=== PATIENT | female | born 1985 | race American Indian/Alaskan Native ===

== ENCOUNTER 2016-08-14 06:37 | Emergency (ER) | payer SELFPAY ==
[2016-08-14 07:22] LABS: Basophils % (Auto) 0.2 % (0.0-1.8); Eosinophils % (Auto) 1.2 % (0.0-4.3); Hematocrit 35.7 % (30.3-42.9); Hemoglobin 11.4 gm/dl (10.1-14.3); Mean Corpuscular HGB Conc 32 % (30-34); Mean Corpuscular Volume 80 fl (79-97); Platelet Count 445 K/mm3 (140-440); Red Blood Count 4.47 M/mm3 (3.65-5.03); Red Cell Distribution Width 15.5 % (13.2-15.2); White Blood Count 7.4 K/mm3 (4.5-11.0)
[2016-08-14 07:25] LABS: Mean Corpuscular Hemoglobin 26 pg (28-32)
[2016-08-14 07:35] LABS: Alanine Aminotransferase 20 units/L (7-56); Albumin 3.5 g/dL (3.9-5); Albumin/Globulin Ratio 1.1 %; Alkaline Phosphatase 81 units/L (35-129); Anion Gap 18 mmol/L; BUN/Creatinine Ratio 14.28; Bilirubin,Total 0.3 mg/dL (0.1-1.2); Blood Urea Nitrogen 10 mg/dL (7-17); Calcium 8.3 mg/dL (8.4-10.2); Carbon Dioxide 24 mmol/L (22-30); Chloride 100.9 mmol/L (98-107); Glucose 113 mg/dL (65-100); Lipase 13 units/L (13-60); Potassium 4.1 mmol/L (3.6-5.0); Sodium 139 mmol/L (137-145); Total Protein 6.7 g/dL (6.3-8.2)
[2016-08-14 13:22] LABS: Ketones,Urine Negative (Negative); Urobilinogen,Urine < 2.0 mg/dL (<2.0)
[2016-08-14 13:23] LABS: Leukocyte Esterase,Urine Negative (Negative); Nitrite,Urine Negative (Negative); RBC,Urine > 182.0 /HPF (0.0-6.0)
--- NOTE | 2016-08-14 13:31 | Emergency Department Report ---
HPI - General Chief Complaint: Abdominal Pain Time Seen by Provider: 08/14/16 12:52 - HPI HPI: This is a 31-year-old Afro-Algerian female presents to the emergency department from home with complaint of right lower and middle abdominal pain since this morning upon waking. The pain is sharp and has been constant. It is associated with some nausea and vomiting but she denies any diarrhea, dysuria, vaginal discharge. Patient does have some mild vaginal bleeding as she started her menstrual cycle today. She took some ibuprofen for discomfort and some Zofran for nausea. The Zofran helped but the ibuprofen did not. No recent travel or sick contacts at home. Patient does have a history of gallstones. She does not currently have a primary care doctor. ED Past Medical Hx - Past Medical History Previous Medical History?: Yes Additional medical history: Hx of Gallstones - Surgical History Past Surgical History?: No - Social History Smoking Status: Never Smoker Substance Use Type: None - Medications Home Medications: Home Medications Medication Instructions Recorded Confirmed Last Taken Type HYDROcodone/APAP 5-325 [[place] 1 each PO Q6HR PRN #12 tablet 08/14/16 Unknown Rx 5/325] ED Review of Systems ROS: Stated complaint: ABDOMINAL PAIN Other details as noted in HPI Comment: All other systems reviewed and negative Constitutional: denies: chills, fever Eyes: denies: eye pain, eye discharge, vision change ENT: denies: ear pain, throat pain Respiratory: denies: cough, shortness of breath, wheezing Cardiovascular: denies: chest pain, palpitations Gastrointestinal: abdominal pain, nausea, vomiting Genitourinary: denies: urgency, dysuria, discharge Musculoskeletal: denies: back pain, joint swelling, arthralgia Skin: denies: rash, lesions Neurological: denies: headache, weakness, paresthesias Physical Exam - Physical Exam Vital Signs: Vital Signs 08/14/16 08/14/16 06:41 12:57 Temperature 99.7 F H 98.2 F Pulse Rate 74 Respiratory 84 H Rate Blood Pressure 112/70 [Right] O2 Sat by Pulse 100 Oximetry Physical Exam: GENERAL: The patient is well-developed well-nourished. HEENT: Normocephalic. Atraumatic. Extraocular motions are intact. Patient has moist mucous membranes. Pupils equal reactive to light bilaterally. NECK: Supple. Trachea is midline. CHEST/LUNGS: Clear to auscultation. There is no respiratory distress noted. HEART/CARDIOVASCULAR: Regular. There is no tachycardia. There is no gallop rub or murmur. ABDOMEN: Abdomen is soft. Patient has some tenderness to palpation to the right lower quadrant of the abdomen. No guarding or rebound tenderness. No peritoneal signs. Patient has normal bowel sounds. There is no abdominal distention. SKIN: There is no rash. There is no edema. There is no diaphoresis. NEURO: The patient is awake, alert, and oriented. The patient is cooperative. The patient has no focal neurologic deficits. The patient has normal speech. MUSCULOSKELETAL: There is no tenderness or deformity. There is no limitation range of motion. There is no evidence of acute injury. ED Course Vital Signs 08/14/16 08/14/16 06:41 12:57 Temperature 99.7 F H 98.2 F Pulse Rate 74 Respiratory 84 H Rate Blood Pressure 112/70 [Right] O2 Sat by Pulse 100 Oximetry ED Medical Decision Making - Lab Data Result diagrams: 08/14/16 07:00 08/14/16 07:00 - Radiology Data Radiology results: report reviewed CT of the abdomen and pelvis with IV contrast shows a large right adnexal cystic mass, presumed ovarian with extrinsic compression of the right lateral aspect of the urinary bladder. Pelvic Doppler ultrasound and transvaginal ultrasound shows a 7.1 cm right ovarian cyst. - Medical Decision Making 31-year-old female presents the emergency department with complaint of right lower quadrant pain and concern for appendicitis. Patient also has history of gallstones but her abdominal pain is much lower than usual with her biliary colic. Patient's labs have been unremarkable. Vital signs stable throughout her ED course. Due to her habitus and concern with right lower quadrant abdominal pain and possible appendicitis, a CT of the abdomen and pelvis was done that came back showing a multicystic mass to the right adnexa concerning to be on the ovary. The recommendation was for ultrasound for better delineation. This was done and did not show any torsion but does show a 7.1 cm right ovarian cyst. Patient has [employer] follow-up. [facility] but will also be given some private [employer] physicians for referral. She'll be given some pain medication. She will return to the ER with any worsening of her symptoms or any acute distress. - Differential Diagnosis malignancy, ovarian cyst, fibroids, appendicitis, Critical Care Time: No Critical care attestation.: If time is entered above; I have spent that time in minutes in the direct care of this critically ill patient, excluding procedure time. ED Disposition Clinical Impression: Abdominal pain Qualifiers: Abdominal location: right lower quadrant Qualified Code(s): R10.31 - Right lower quadrant pain Ovarian cyst Qualifiers: Laterality: right Qualified Code(s): N83.201 - Unspecified ovarian cyst, right side Disposition: DISCHARGED TO HOME OR SELFCARE Is pt being admited?: No Does the pt Need Aspirin: No Condition: Stable Instructions: Abdominal Pain (ED), Ovarian Cyst (ED) Additional Instructions: Please follow-up with your [employer]ODU[employer] INSPECTOR TRIMMER in the near future. Return to the emergency department with any worsening of your symptoms or any acute distress. You've been prescribed a medication that is sedating. Therefore this medication cannot be mixed with alcohol, or taken prior to driving, working, or being responsible for children. Prescriptions: HYDROcodone/APAP 5-325 [[place] 5/325] 1 each PO Q6HR PRN #12 tablet PRN Reason: Pain Referrals: PRIMARY CARE, [Primary Care Provider] - 3-5 Days MACK MACKAY MD [Staff Physician] - 3-5 Days GINO ARCINIEGA MD [Staff Physician] - 3-5 Days JOSE A AYERS MD [Staff Physician] - 3-5 Days Forms: Work/School Release Form(ED) Time of Disposition: 18:02
--- NOTE | 2016-08-14 14:46 | XRay Report ---
ABDOMEN TWO VIEWS: History: Abdominal pain. There is no evidence of free air beneath the diaphragms. The gas pattern within the abdomen is unremarkable. There is no evidence of bowel dilatation, significant air-fluid levels, or masses. The psoas margins are adequately visualized. IMPRESSION: Unremarkable abdomen.
[2016-08-14] MEDS ORDERED: NACL 0.9% 1000 ML 1,000 ML IV ONE (14:51)
[2016-08-14] MEDS ORDERED: MORPHINE IV ONE (14:52)
--- NOTE | 2016-08-14 16:24 | Cat Scan Report ---
CT of the abdomen and pelvis with IV contrast. Findings: The liver, spleen, pancreas, and gallbladder appear normal. The kidneys are normal in size and configuration with no evidence of mass or hydronephrosis. There is a large cystic mass in the right pelvis exerting marked extrinsic compression of the urinary bladder on the right. The mass measures approximately 6.7 x 8.2 x 6.5 CM. The capsule of the mass is thin and there is no contrast enhancement; no calcifications are seen within the mass. The uterus is normal in size and configuration, and no left adnexal abnormalities are seen. There no mesenteric inflammatory changes. There is no radiographic evidence of appendicitis. Impression: Large right adnexal cystic mass, presumed ovarian with extrinsic compression of the right lateral aspect of the urinary bladder. Correlation with pelvic ultrasound may be useful in further evaluation.
[2016-08-14] MEDS ORDERED: MACROBID PO ONE (16:27)
--- NOTE | 2016-08-14 17:32 | Ultrasound Report ---
FINAL REPORT PROCEDURE: US PELVIS DUPLEX DOPPLER COMP TECHNIQUE: Real-time transabdominal sonography in multiple planes of the pelvis was performed. The pelvic structures were not optimally visualized. Transvaginal sonography was then performed to better evaluate the structures and/or abnormalities described below with image documentation. Grayscale, color flow Doppler imaging and velocity spectral waveform analysis of the ovaries was employed (duplex imaging). CPT 86711, 22593, and 18226 HISTORY: pelvic pain and mass COMPARISON: No prior studies are available for comparison. FINDINGS: Uterus measures 11.7 cm in length. Endometrial thickness is 1.3 cm. No uterine masses are seen. Left ovary is obscured due to bowel gas. Right ovary is enlarged measuring 6.7 x 6.8 x 7.9 cm. It contains 7.1 cm cyst. Normal Doppler flow is seen in the right ovary. Minimal physiologic free pelvic fluid is seen. IMPRESSION: 7.1 cm right ovarian cyst is seen.
--- NOTE | 2016-08-14 17:32 | Ultrasound Report ---
FINAL REPORT PROCEDURE: US TRANSVAGINAL TECHNIQUE: Real-time transabdominal sonography in multiple planes of the pelvis was performed. The pelvic structures were not optimally visualized. Transvaginal sonography was then performed to better evaluate the structures and/or abnormalities described below with image documentation. Grayscale, color flow Doppler imaging and velocity spectral waveform analysis of the ovaries was employed (duplex imaging). CPT 18109, 35370, and 71996 HISTORY: pelvic pain and mass COMPARISON: No prior studies are available for comparison. FINDINGS: Uterus measures 11.7 cm in length. Endometrial thickness is 1.3 cm. No uterine masses are seen. Left ovary is obscured due to bowel gas. Right ovary is enlarged measuring 6.7 x 6.8 x 7.9 cm. It contains 7.1 cm cyst. Normal Doppler flow is seen in the right ovary. Minimal physiologic free pelvic fluid is seen. IMPRESSION: 7.1 cm right ovarian cyst is seen.
[2016-08-14 18:14] VITALS: BP 124/80
== END 2016-08-14 18:15 | disposition home or self-care (01) ==
LOC: ED 06:37
DX: N83.201 Unspecified ovarian cyst, right side (principal); R10.31 Right lower quadrant pain
CPT/HCPCS: 36415; 74020; 74177; 76830; 80053; 81001; 81025; 83690; 85025; 93975; 96360; 99284; J7030; Q9967; J2270

== ENCOUNTER 2019-10-13 06:22 | Day surgery (SDC) | payer MEDICAID ==
--- NOTE | 2019-10-12 11:17 | Short Stay Summary ---
Short Stay Documentation Date of service: 10/13/19 - History H&P: obtained from office - Allergies and Medications Current Medications: Allergies No Known Allergies Allergy (Verified 10/09/19 10:00) Home Medications Medication Instructions Recorded Confirmed Last Taken Type No Known Home Medications [No 10/01/19 10/09/19 Unknown History Reported Home Medications] Active Medications Lactated Ringer's (Lactated Ringers) 1,000 mls @ 100 mls/hr IV DIRECT ANEL Midazolam HCl (Versed) 2 mg IV PREOP NR Stop: 10/13/19 23:00 - Physical exam General appearance: no acute distress Integumentary: no rash HEENT: Atraumatic Lungs: Normal air movement Neurological: Normal speech - Brief post op/procedure progress note Date of procedure: 10/13/19 (dictation:[id number]) Pre-op diagnosis: abdominal wall mass Post-op diagnosis: same Procedure: excision of abdominal wall mass repair of anterior fascia IVF 750cc EBl ~50cc Anesthesia: GETA Findings: 5x4.5x5.7cm firm mass that was densely adhered to anterior fascia Surgeon: MARYAM BOUDREAUX Estimated blood loss: 50-100ml Pathology: list (abdominal wall mass) Specimen disposition: to lab Condition: stable - Hospital course Hospital course: uneventful - Disposition Condition at discharge: Stable Disposition: DC-01 TO HOME OR SELFCARE Short Stay Discharge Plan Activity: advance as tolerated Diet: regular Wound: open to air, keep clean and dry Special Instructions: no heavy lifting Additional Instructions: Post Operative Instructions Activity: no heavy lifting for next 1 week. May shower tomorrow. Pat dry the wound or wounds. Keep incision sites clean and dry After surgery, start with a light diet. Consider starting with liquids. If you do well, you can advance to a regular diet as you feel comfortable. Apply an ice pack to the wound or wounds for 10-20 minutes at a time. Do this at least 4-5 times a day. You can do it more if he would like. Pain Medication Schedule for the first 2 days after surgery: Gabapentin 600mg twice a day Celebrex (celecoxib) 200mg twice a day Tylenol 500mg four times a day (every 6 hours) After the first 2 days, then take alternating doses of ibuprofen and Tylenol as needed for pain. Take 600 mg of ibuprofen every 6 hours as needed. Take 500 mg of Tylenol every 6 hours as needed. You should alternate these 2 medicines. Make sure you take the ibuprofen with food. It is very important that you use the prescription narcotic pain medicine (hydrocodone) only for very severe pain. Do not take the narcotic medicine before you try using all the medications listed above. We will call you in a couple of days to see how youre doing. If you have any questions or concerns, always feel free to call the clinic ([phone]) at any time. Follow up with: PRIMARY MD RON [Referring] - 7 Days MARYAM BOUDREAUX MD [Staff Physician] - 14 Days Forms: Outpatient Surgery DC Inst. Prescriptions: Celecoxib [celeBREX] 200 mg PO BID #4 capsule Gabapentin 600 mg PO BID #8 cap HYDROcodone/APAP 5-325 [[place] 5-325 mg TAB] 1 each PO Q6HR PRN #20 tablet PRN Reason: Pain , Severe (7-10)
[~2019-10-13 06:22] MED LIST: ACETAMINOPHEN 500 MG TAB PO ONE; CELECOXIB 200 MG CAP PO NR; GABAPENTIN 400 MG CAP PO SCH; LACTATED RINGERS 1,000 ML IV SCH; MIDAZOLAM 2 MG/2 ML INJ IV NR; ceFAZolin/Water 2 GM/20 ML 2 GM/20 ML SYRINGE IV NR
[2019-10-13] MEDS ORDERED: LIDOCAINE (1%) 10 MG/1 ML VIAL 20 ML MDV ONE (06:56)
[2019-10-13] MEDS ORDERED: BUPIVACAINE-EPINEPHRINE/PF 0.5%-1:200,000 (10 ML) VIAL INFILTRATI ONE (06:57)
[2019-10-13] MEDS ORDERED: fentaNYL 100 MCG/2 ML INJ IV PRN (07:08)
--- NOTE | 2019-10-13 07:08 | Anesthesia Consultation ---
Anesthesia Consult and Med Hx Date of service: 10/13/19 - Airway Anesthetic Teeth Evaluation: Good ROM Head & Neck: Adequate Mental/Hyoid Distance: Adequate Mallampati Class: Class III Intubation Access Assessment: Possibly Difficult - Pulmonary Exam CTA: Yes - Cardiac Exam Cardiac Exam: RRR - Pre-Operative Health Status ASA Pre-Surgery Classification: ASA1 Proposed Anesthetic Plan: General - Pre-Anesthesia Comment Pre-Anesthesia Comments: Patient requests GA. - Pulmonary Hx Smoking: No Hx Respiratory Symptoms: No - Cardiovascular System Hx Hypertension: No Hx Heart Attack/AMI: No Hx Percutaneous Transluminal Coronary Angioplasty (PTCA): No - Central Nervous System CVA: No - Gastrointestinal Hx Gastroesophageal Reflux Disease: No - Endocrine Hx Renal Disease: No Hx Liver Disease: No Hx Insulin Dependent Diabetes: No Hx Non-Insulin Dependent Diabetes: No Hx Thyroid Disease: No - Other Systems Hx Obesity: Yes (BMI 36) - Additional Comments Anesthesia Medical History Comments: No hx anesthetic complications.
--- NOTE | 2019-10-13 07:08 | Anesthesia Day of Surgery ---
Anesthesia Day of Surgery - Day of Surgery Patient Examined: Yes Patient H&P Reviewed: Yes Patient is NPO: Yes
[2019-10-13] MEDS ORDERED: fentaNYL 100 MCG/2 ML INJ ONE (07:35)
[2019-10-13] MEDS ORDERED: ONDANSETRON 4 MG/2 ML INJ ONE (07:35)
[2019-10-13] MEDS ORDERED: dexAMETHasone 20 MG/5 ML VIAL ONE (07:35)
[2019-10-13] MEDS ORDERED: propofoL 200 MG/20 ML VIAL IV ONE (07:35)
[2019-10-13] MEDS ORDERED: LIDOCAINE MPF (2%) 20 MG/1 ML VIAL 5 ML ONE (07:35)
[2019-10-13] MEDS ORDERED: LIDOCAINE (1%) 10 MG/1 ML VIAL 20 ML MDV INFILTRATI ONE (07:53)
[2019-10-13] MEDS ORDERED: BUPIVACAINE-EPINEPHRINE/PF 0.5%-1:200,000 (30 ML) VIAL INFILTRATI ONE ×2 (07:53)
[2019-10-13] MEDS ORDERED: HYDROmorphone 1 MG/1 ML INJ ONE (08:19)
[2019-10-13] MEDS ORDERED: HYDROcodone/ACETAMINOPHEN 5-325 MG TAB PO PRN (09:27)
--- NOTE | 2019-10-13 10:44 | Operative Report ---
PREOPERATIVE DIAGNOSIS: Abdominal wall mass. POSTOPERATIVE DIAGNOSIS: Abdominal wall mass. PROCEDURES: 1. Excision of abdominal wall mass. 2. Repair of anterior abdominal wall fascia with mesh. ATTENDING PHYSICIAN: Delmy Dsouza MD ANESTHESIA: General. ESTIMATED BLOOD LOSS: Approximately 50 mL. FLUIDS: 750 mL. FINDINGS: A 5 x 4.5 x 5.7 cm firm mass densely adhered to the anterior abdominal fascia. SPECIMEN: Same. IMPLANT: Phasix mesh. DRAINS: None. COMPLICATIONS: None. DISPOSITION: Stable, transferred to Recovery. INDICATIONS: This is a 34-year-old female who presents to the office with complaints of painful mass in the left lower quadrant. This is in the area of her incision. Exam and CT scan suggested a firm mass in that area. The patient is assessed to be in need for excision. Procedure, risks, benefits were explained to the patient. Risks include but were not limited to infection, bleeding, pain, injury to surrounding structures, possible need for further procedures in the future. The patient understood and consented. OPERATIVE NOTE: The patient was brought to the operating room and placed on the table in supine position. After adequate general anesthesia was established, the patient was prepped and draped in usual sterile fashion. Timeout had been called and antibiotics had been given. SCDs were in place. I began by anesthetizing the old Pfannenstiel incision site. Specifically, the area over the mass, this was incised sharply. Dissection was carried down to the mass with electrocautery. The mass was irregularly shaped and broadly based on the fascia. It was very challenging to separate the mass from the surrounding tissue as it was densely adherent and the planes were not well defined; however, as best as I could I carefully dissected around the mass primarily with electrocautery trying to stay primarily outside of the mass to make sure we got all of it. At least 20 minutes of extra time was needed to seperate the mass from the surrounding tissue due to the dense adhesions. The deep portion was continuous with the anterior fascia such that once we got the mass excised we could see a portion of anterior fascia that was missing. Looking at the mass itself I did not see a significant amount of fascia on the deep surface; however, we now could easily see the rectus muscle. There was no involvement deeper than this level. We oriented the mass with silk sutures for pathology and passed off table in sterile fashion. Hemostasis was achieved with electrocautery. Because of the large defect, which was approximately 4 x 5 cm in the fascia, I elected to reinforce this area with an absorbable mesh. I was concerned about leaving Prolene as this would be permanent and may re-create the same situation that she just had as I think this was as a result of excess scar tissue from her , possibly also endometrial implants contributing to a large growth. Therefore, we used the Phasix mesh, which would absorb in time. We also used 0 Vicryl sutures to secure the mesh to the fascial edges with interrupted stitches. Subcutaneous tissue was closed with interrupted 3-0 Vicryl sutures. Wound had been thoroughly irrigated. Additional local was injected into all the tissues including the anterior rectus sheath. Skin was closed with a running 4-0 Monocryl subcuticular stitch. Skin was cleaned and dried. Dermabond was placed. The patient tolerated the procedure well. There were no complications. All counts were correct at the end of the case. was not in the waiting room after surgery. JOB# [id number] WILLIAM/HAMMAD ARIAS
[2019-10-13 11:22] VITALS: BP 124/78
--- NOTE | 2019-10-13 12:14 | Post Anesthesia Evaluation ---
- Post Anesthesia Evaluation Patient Participated: Yes Airway Patent: Yes Stable Respiratory Function: Yes Nausea/Vomiting: No Temp > 96.8F: Yes Pain Manageable: Yes Adequeate Hydration: Yes Anesthesia Complications: No
== END 2019-10-13 11:50 | disposition home or self-care (01) ==
LOC: OR 06:22
PROVIDERS: ATTEND Surgery
DX: R19.00 Intra-abdominal and pelvic swelling, mass and lump, unspecified site (principal); N80.8 Other endometriosis; Z98.891 History of uterine scar from previous surgery; Z72.89 Other problems related to lifestyle; E66.9 Obesity, unspecified; Z98.890 Other specified postprocedural states; Z80.1 Family history of malignant neoplasm of trachea, bronchus and lung; Z68.36 Body mass index [BMI] 36.0-36.9, adult; M79.89 Other specified soft tissue disorders
CPT/HCPCS: 22903; 81025; 88307; C1781; J0690; J1100; J1170; J2250; J2405; J2704; J3010; J7120

== ENCOUNTER 2020-07-15 07:32 | Emergency (ER) | payer MEDICAID ==
[2020-07-15 10:31] LABS: Basophils % (Auto) 0.5 % (0.0-1.8); Eosinophils # (Auto) 0.1 K/mm3 (0.0-0.4); Eosinophils % (Auto) 1.6 % (0.0-4.3); Hematocrit 34.2 % (30.3-42.9); Hemoglobin 11.2 gm/dl (10.1-14.3); Lymphocytes # (Auto) 1.3 K/mm3 (1.2-5.4); Lymphocytes % (Auto) 24.7 % (13.4-35.0); Mean Corpuscular HGB Conc 33 % (30-34); Mean Corpuscular Volume 75 fl (79-97); Monocytes # (Auto) 0.3 K/mm3 (0.0-0.8); Monocytes % (Auto) 5.9 % (0.0-7.3); Platelet Count 528 K/mm3 (140-440); Red Blood Count 4.58 M/mm3 (3.65-5.03); Red Cell Distribution Width 17.1 % (13.2-15.2)
--- NOTE | 2020-07-15 15:59 | Emergency Department Report ---
ED HPI - General Chief complaint: Vaginal Bleeding Stated complaint: 8WKS /BLEEDING Time Seen by Provider: 07/15/20 14:56 Source: patient Mode of arrival: Ambulatory Limitations: No Limitations - History of Present Illness Initial comments: The patient was evaluated in the emergency department for symptoms described in the history of present illness. He/she was evaluated in the context of the global COVID-19 pandemic, which necessitated consideration that the patient might be at risk for infection with the virus that causes COVID-19. Institutional protocols and algorithms that pertain to the evaluation of patients at risk for COVID-19 are in a state of rapid change based on information released by regulatory bodies including the CDC and federal and state organizations. These policies and algorithms were followed during the patient's care in the emergency department. Please note that these policies, procedures and recommendations changed on a rapid basis. 35-year-old -Russian female presents to the emergency room stating she is having some vaginal spotting. Patient states that she is having light pink discharge is only had 1 panty liner. Patient reports she is approximately 8 weeks with a last menstrual period of May 03, 2020. She is 4 para 2 with 1 miscarriage. She has started care with [facility]. Her last visit was Saturday where she had an ultrasound patient states that there were not able to get an heartbeat at that time. Patient reports her other 2 deliveries were with the last one September 23, 2011. Denies any dysuria she denies any abdominal pain or pelvic cramping. MD Complaint: vaginal bleeding -: This morning Severity scale (0 -10): 0 Associated symptoms: vaginal bleeding (Vaginal spotting) Vaginal bleeding: light :: Yes Number of weeks : 8 OB History - Current : no complications OB History - Previous Pregnancies: miscarriage Last menstrual period: 05/03/20 Pre- care: followed by OB ([facility]) - Related Data : 4 Para: 2 Ab: 1 (Miscarriage) Previous Rx's Medication Instructions Recorded Last Taken Type Celecoxib [celeBREX] 200 mg PO BID #4 capsule 10/13/19 Unknown Rx Gabapentin 600 mg PO BID #8 cap 10/13/19 Unknown Rx HYDROcodone/APAP 5-325 [[place] 1 each PO Q6HR PRN #20 tablet 10/13/19 Unknown Rx 5-325 mg TAB] Allergies Allergy/AdvReac Type Severity Reaction Status Date / Time No Known Allergies Allergy Verified 10/09/19 10:00 ED Review of Systems ROS: Stated complaint: 8WKS /BLEEDING Other details as noted in HPI Comment: All other systems reviewed and negative ED Past Medical Hx - Past Medical History Previous Medical History?: Yes Hx Hypertension: No Hx Heart Attack/AMI: No Hx Liver Disease: No Hx Renal Disease: No Hx HIV: (NEVER TESTED) Additional medical history: Hx of Gallstones - Surgical History Past Surgical History?: Yes Additional Surgical History: C section - Social History Smoking Status: Never Smoker - Medications Home Medications: Home Medications Medication Instructions Recorded Confirmed Last Taken Type Celecoxib [celeBREX] 200 mg PO BID #4 capsule 10/13/19 Unknown Rx Gabapentin 600 mg PO BID #8 cap 10/13/19 Unknown Rx HYDROcodone/APAP 5-325 [[place] 1 each PO Q6HR PRN #20 tablet 10/13/19 Unknown Rx 5-325 mg TAB] ED Physical Exam - General Limitations: No Limitations ED Course Vital Signs 07/15/20 07/15/20 08:42 18:22 Temperature 98.0 F 98.2 F Pulse Rate 81 82 Respiratory 16 20 Rate Blood Pressure 117/73 121/84 O2 Sat by Pulse 99 100 Oximetry ED Medical Decision Making - Lab Data Result diagrams: 07/15/20 09:20 - Radiology Data Radiology results: report reviewed Patient Name: VAN HAMEED Gender: Female Date of : 1985 Referring Provider: PETERSON MUNGUIA Organization: [facility] Accession Number: [id number] Requested Date: July 15, 2020 15:59 Report Status: Final Requested Procedure: 1 Procedure Description: US OB <= 14 weeks fetus Modality: US Findings Reporting MD: Gaudencio Pereyra Dictation Time: July 15, 2020 17:20 Infant And Toddler Teacher: Not available Helicopter Officer Date: ULTRASOUND OBSTETRIC Indication: Vaginal spotting Findings: There is an intrauterine visualized. No definite heart tones were appreciated. [place]-rump length = 1.8 cm = 8 weeks, 2 day(s). heart rate is 0 beats per minute. The ovaries are normal. There is no free fluid. Impression: Single intrauterine without detectable heart tones, as above. Recommend short-term follow-up. Signer Name: Gaudencio Pereyra MD Signed: 07/15/2020 5:20 PM Workstation Name: [id number] - Medical Decision Making 35-year-old -Russian female presents to the emergency room stating she i s having some vaginal spotting. Patient states that she is having light pink discharge is only had 1 panty liner. Patient reports she is approximately 8 weeks with a last menstrual period of May 03, 2020. She is 4 para 2 with 1 miscarriage. She has started care with [facility]. Her last visit was Saturday where she had an ultrasound patient states that there were not able to get an heartbeat at that time. Patient reports her other 2 deliveries were with the last one September 23, 2011. Denies any dysuria she denies any abdominal pain [place] [address] no signs of anemia patient has a urinary tract infection., Ultrasound shows 8 weeks still with no heart rate. 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 Critical care attestation.: If time is entered above; I have spent that time in minutes in the direct care of this critically ill patient, excluding procedure time. ED Disposition Clinical Impression: UTI (urinary tract infection) Qualifiers: Weeks of gestation: 8 weeks Qualified Code(s): Z3A.08 - 8 weeks gestation of Disposition: DC-01 TO HOME OR SELFCARE Is pt being admited?: No Does the pt Need Aspirin: No Condition: Stable Additional Instructions: Ultrasound shows that you are not 8 weeks still no heart rate with the fetus. I recommended she follow back up with your POST HOLE DIGGING MACHINE OPERATOR to discussed care plan. Most likely will need a D&C. But she needs to be reevaluated by her POST HOLE DIGGING MACHINE OPERATOR. Referrals: [facility] [Other] - 3-5 Days [facility] POST HOLE DIGGING MACHINE OPERATOR [Provider Group] - 3-5 Days
[2020-07-15 16:01] LABS: Bilirubin,Urine NEG (Negative); Blood,Urine LG (Negative); Color,Urine Amber (Yellow); Mucus,Urine 3+ /HPF; Urobilinogen,Urine < 2.0 mg/dL (<2.0)
--- NOTE | 2020-07-15 18:24 | Ultrasound Report ---
ULTRASOUND OBSTETRIC Indication: Vaginal spotting Findings: There is an intrauterine visualized. No definite heart tones were appreciated. [place]-rump length = 1.8 cm = 8 weeks, 2 day(s). heart rate is 0 beats per minute. The ovaries are normal. There is no free fluid. Impression: Single intrauterine without detectable heart tones, as above. Recommend short-term follow-u p. Signer Name: Gaudencio Pereyra MD Signed: 07/15/2020 6:20 PM Workstation Name: [email or web address]
--- NOTE | 2020-07-15 18:24 | Ultrasound Report ---
ULTRASOUND OBSTETRIC Indication: Vaginal spotting Findings: There is an intrauterine visualized. No definite heart tones were appreciated. [place]-rump length = 1.8 cm = 8 weeks, 2 day(s). heart rate is 0 beats per minute. The ovaries are normal. There is no free fluid. Impression: Single intrauterine without detectable heart tones, as above. Recommend short-term follow-u p. Signer Name: Gaudencio Pereyra MD Signed: 07/15/2020 6:20 PM Workstation Name: [employer]
[2020-07-15 18:27] VITALS: BP 121/84
== END 2020-07-15 19:41 | disposition home or self-care (01) ==
LOC: ED 07:32
DX: O23.41 Unspecified infection of urinary tract in pregnancy, first trimester (principal); Z98.890 Other specified postprocedural states; Z79.899 Other long term (current) drug therapy; Z3A.08 8 weeks gestation of pregnancy
CPT/HCPCS: 36415; 76801; 76817; 81001; 84702; 84703; 85025; 86900; 86901; 87086